=== PATIENT | male | born 1955 | race Caucasian/White ===

== ENCOUNTER 2019-09-06 10:12 | Inpatient (IN) | payer MEDICARE ==
[2019-09-06] MEDS ORDERED: HYDROcodone/Acetaminophen 10/325 mg Tablet PO SCH (13:00)
[2019-09-06] MEDS ORDERED: HYDROcodone/Acetaminophen 10/325 mg Tablet PO PRN (13:48)
[2019-09-06] MEDS ORDERED: Prevnar 13-Val Conj/PF 0.5 ML SYRINGE IM ONE (14:00)
[2019-09-06] MEDS: HYDROcodone/Acetaminophen 10/325 mg Tablet PO PRN ×2 (17:30→21:26)
--- NOTE | 2019-09-06 19:37 | HP ---
HISTORY OF PRESENT ILLNESS: A 64-year-old male patient, who experienced acute onset of right knee pain 2 weeks ago, was treated and released at [facility] Emergency Room and then was later seen again as an outpatient by Ortho, who admitted him for septic arthritis of the right knee, where he subsequently underwent arthrotomy with irrigation, debridement, and open packing on 08/31/2019. Based on consultation with Infectious Disease, Dr. Escobar, it was recommended that he undergo 4-week IV antibiotics treatment. His joint aspirate, tissue, and blood cultures were negative, and his initial WBCs were 7.3. His urine culture was positive for multi-drug resistant e coli, and his GC is pending. He has a PICC line inserted and is currently receiving 2 g Rocephin daily. He tested positive for both Hepatitis C and B. He reports last used Heroin by 'skin popping' 2 days prior to admission. PAST MEDICAL HISTORY: DMT2, CAD, Hypertension, Substance abuse of Heroin and methamphetamine. SURGICAL HISTORY: 08/31/19 Right Knee Arthrotomy, Irrigation, and Debridement, PTCA/Stent FAMILY HISTORY: Noncontributory. SOCIAL HISTORY: He is a former smoker, quit in 1988. He currently drinks alcohol, but was unable to quantify. Does not drink daily. As stated above, he is an active heroin and meth abuser. He last used just prior to admission. He was living with friends in [place], he has a brother who lives in [place], but he is currently homeless. CURRENT MEDICATIONS: 1. Lisinopril 5 mg daily. 2. Metoprolol 25 mg p.o. b.i.d. 3. Tizanidine HCL 2 mg q.4 hours p.r.n. muscle spasm. 4. Hydrocodone 10/325 one to two tabs q.4-6. 5. Glipizide XL 2.5 mg q.a.m. ALLERGIES: NO KNOWN ALLERGIES. REVIEW OF SYSTEMS: A 14-point review of systems negative. PHYSICAL EXAMINATION: VITAL SIGNS: Temperature 98.6, heart rate 62, respirations 18, O2 saturation 98 % on room air, blood pressure 122/64. GENERAL APPEARANCE: He is alert and oriented x3, in no acute distress, talkative HEENT: Conjunctivae normal, no discharge. Pupils equal, round, reactive to light and accommodation. SKIN: Scattered excoriated lesions on his forearms. Right knee is wrapped in an Jeff wrap. NECK: Supple. No jugular vein distension. LUNGS: Clear to auscultation bilaterally. CARDIOVASCULAR: Normal rate and rhythm. Normal S1 and S2. No murmurs. ABDOMEN: Soft, nontender, nondistended, no mass/megaly Active bowel sounds. EXTREMITIES: Well-proportioned and symmetrical. No edema. 2+ pulses in all 4 extremities. LABORATORY DATA: White cell count 5.1, H/H 01/26, platelets 347. Sodium 133, potassium 4.7, chloride 109, CO2 24, BUN 21, creatinine 0.86, glucose 149. Uric Acid 3.8, Multidrug resistant Urine Culture treated with Cipro, Negative joint fluid, tissue, and blood cultures ASSESSMENT: Septic v Inflammatory arthritis, right knee, status post arthrotomy and debridement with open packing, DMT2 poor control PLAN: 1.We will require daily dressing changes, wet to dry over the next 4 weeks of daily IV antibiotic via PICC line. 2. DMT2 obtain A1C and add Metformin bid 3. Dietary Consult DMT2 4. Case Management Consult Substance Abuse and unstable living situation 5. Hypertension poorly controlled, increase Lisinopril to 20 mg daily Job ID: [id number] [id number]
[2019-09-06] MEDS: Metoprolol Tartrate 25 MG TAB PO SCH (21:28)
[2019-09-06] MEDS ORDERED: cefTRIAXone\\ROCEPHIN 2 GM VIAL IVPB SCH (23:00)
[2019-09-07] MEDS: HYDROcodone/Acetaminophen 10/325 mg Tablet PO PRN ×4 (01:36→20:00)
[2019-09-07] MEDS: Metoprolol Tartrate 25 MG TAB PO SCH ×2 (07:50→21:29)
[2019-09-07] MEDS ORDERED: Lisinopril 5 MG TAB PO SCH (09:00)
[2019-09-07] MEDS: Lisinopril 20 MG TAB PO SCH (10:04)
[2019-09-07 12:40] LABS: Hemoglobin A1c 6.3 % (4.0-6.0)
[2019-09-07] MEDS: cefTRIAXone\\ROCEPHIN 2 GM VIAL IVPB SCH (21:30)
[2019-09-08] MEDS: HYDROcodone/Acetaminophen 10/325 mg Tablet PO PRN ×6 (00:25→23:12)
[2019-09-08] MEDS ORDERED: Insulin Regular 300 UNITS/3 ML VIAL SC PRN (06:43)
[2019-09-08] MEDS ORDERED: Dextrose 5% in Water 1,000 ML IV PRN (06:43)
[2019-09-08] MEDS ORDERED: Dextrose 50% Abboject 50 ML SYRINGE SLOW IVP PRN (06:43)
[2019-09-08] MEDS: Lisinopril 20 MG TAB PO SCH (09:21)
[2019-09-08] MEDS: Metoprolol Tartrate 25 MG TAB PO SCH ×2 (09:21→21:16)
[2019-09-08] MEDS: metFORMIN XR 500 MG TAB PO SCH (09:21)
[2019-09-08] MEDS: cefTRIAXone\\ROCEPHIN 2 GM VIAL IVPB SCH (21:15)
[2019-09-09] MEDS: HYDROcodone/Acetaminophen 10/325 mg Tablet PO PRN ×4 (04:26→20:12)
[2019-09-09] MEDS: Metoprolol Tartrate 25 MG TAB PO SCH ×2 (09:18→20:13)
[2019-09-09] MEDS: metFORMIN XR 500 MG TAB PO SCH (09:21)
[2019-09-09] MEDS: Lisinopril 20 MG TAB PO SCH (09:21)
[2019-09-09] MEDS: cefTRIAXone\\ROCEPHIN 2 GM VIAL IVPB SCH (20:13)
[2019-09-10] MEDS: HYDROcodone/Acetaminophen 10/325 mg Tablet PO PRN ×4 (00:20→20:12)
[2019-09-10] MEDS: Lisinopril 20 MG TAB PO SCH (08:36)
[2019-09-10] MEDS: Metoprolol Tartrate 25 MG TAB PO SCH ×2 (08:36→20:13)
[2019-09-10] MEDS: metFORMIN XR 500 MG TAB PO SCH (08:37)
[2019-09-10] MEDS: cefTRIAXone\\ROCEPHIN 2 GM VIAL IVPB SCH (20:15)
[2019-09-11] MEDS: HYDROcodone/Acetaminophen 10/325 mg Tablet PO PRN ×5 (00:50→20:25)
[2019-09-11] MEDS: metFORMIN XR 500 MG TAB PO SCH (07:59)
[2019-09-11] MEDS: Lisinopril 20 MG TAB PO SCH (08:00)
[2019-09-11] MEDS: Metoprolol Tartrate 25 MG TAB PO SCH ×2 (08:00→20:25)
[2019-09-11] MEDS: cefTRIAXone\\ROCEPHIN 2 GM VIAL IVPB SCH (20:25)
[2019-09-12] MEDS: HYDROcodone/Acetaminophen 10/325 mg Tablet PO PRN ×4 (02:59→21:54)
[2019-09-12] MEDS: metFORMIN XR 500 MG TAB PO SCH (09:31)
[2019-09-12] MEDS: Lisinopril 20 MG TAB PO SCH (09:32)
[2019-09-12] MEDS: Metoprolol Tartrate 25 MG TAB PO SCH ×2 (09:32→21:54)
[2019-09-12] MEDS: cefTRIAXone\\ROCEPHIN 2 GM VIAL IVPB SCH (21:55)
[2019-09-13] MEDS: HYDROcodone/Acetaminophen 10/325 mg Tablet PO PRN ×4 (03:03→20:34)
[2019-09-13 05:33] LABS: #Basophils 0.1 thou/uL (0.0-0.2); #Eosinphils 0.2 thou/uL (0.0-0.7); #Lymphocytes 2.6 thou/uL (1.20-3.40); #Monocytes 0.7 thou/uL (0.11-0.59); #Neutrophils 4.3 thou/uL (1.40-6.50); %Basophils 1.1 % (0.0-1.0); %Eosinophils 2.8 % (0.0-10.0); %Lymphocytes 32.7 % (21.0-51.0); %Monocytes 9.3 % (0.0-10.0); %Neutrophils 54.1 % (42.0-75.0); Hemoglobin 9.9 g/dL (14.0-18.0); Mean Corpuscular HGB CONC 31.4 g/dL (32.0-36.0); Mean Corpuscular Hemoglobin 30.5 pg (27.0-31.0); Mean Corpuscular Volume 96.9 fL (78.0-98.0); Mean Platelet Volume 5.9 fL (7.4-10.4); Platelet Count 304 thou/uL (130-400); RBC Distribution Width 13.3 % (11.5-14.5); Red Blood Cell (RBC) Count 3.25 mill/uL (4.70-6.10); White Blood Cell (WBC) Count 7.9 thou/uL (4.8-10.8)
[2019-09-13 06:08] LABS: ALT (SGPT) 39 U/L (8-55); AST (SGOT) 61 U/L (5-34); Albumin 2.6 g/dL (3.4-4.8); Alkaline Phosphatase 143 U/L (40-110); Anion Gap 12 mmol/L (10-20); BUN (Urea Nitrogen) 37 mg/dL (8.4-25.7); Bilirubin, Total 0.2 mg/dL (0.2-1.2); CRP (Inflammatory) 2.83 mg/dL (= or < 0.5); Calc. Creatinine Clearance 98 mL/min (70-130); Calcium 8.7 mg/dL (7.8-10.44); Carbon Dioxide 22 mmol/L (23-31); Chloride 105 mmol/L (98-107); Estimated GFR-MDRD Greater than 90; Globulin 5.4 g/dL (2.4-3.5); Glucose 143 mg/dL (80-115); Potassium 5.1 mmol/L (3.5-5.1); Sodium 134 mmol/L (136-145)
[2019-09-13] MEDS: Metoprolol Tartrate 25 MG TAB PO SCH ×2 (08:05→20:33)
[2019-09-13] MEDS: metFORMIN XR 500 MG TAB PO SCH (08:05)
[2019-09-13] MEDS: Lisinopril 20 MG TAB PO SCH (08:10)
[2019-09-13] MEDS: cefTRIAXone\\ROCEPHIN 2 GM in Sodium Chloride 0.9% 100 ML IVPB SCH (20:32)
[2019-09-13] MEDS ORDERED: cefTRIAXone\\ROCEPHIN 2 GM in Sodium Chloride 0.9% 100 ML IVPB SCH (21:00)
[2019-09-14] MEDS: HYDROcodone/Acetaminophen 10/325 mg Tablet PO PRN ×4 (01:03→20:30)
[2019-09-14] MEDS: metFORMIN XR 500 MG TAB PO SCH (08:21)
[2019-09-14] MEDS: Metoprolol Tartrate 25 MG TAB PO SCH ×2 (08:22→20:31)
[2019-09-14] MEDS: Lisinopril 20 MG TAB PO SCH (08:24)
[2019-09-14] MEDS: cefTRIAXone\\ROCEPHIN 2 GM in Sodium Chloride 0.9% 100 ML IVPB SCH (20:32)
[2019-09-15] MEDS: HYDROcodone/Acetaminophen 10/325 mg Tablet PO PRN ×5 (02:15→20:44)
[2019-09-15] MEDS: metFORMIN XR 500 MG TAB PO SCH ×2 (08:23→17:36)
[2019-09-15] MEDS: Lisinopril 20 MG TAB PO SCH (08:24)
[2019-09-15] MEDS: Metoprolol Tartrate 25 MG TAB PO SCH ×2 (08:27→20:40)
[2019-09-15] MEDS: cefTRIAXone\\ROCEPHIN 2 GM in Sodium Chloride 0.9% 100 ML IVPB SCH (20:36)
[2019-09-16] MEDS: HYDROcodone/Acetaminophen 10/325 mg Tablet PO PRN ×4 (01:51→20:20)
[2019-09-16] MEDS: tiZANidine HCl 4 MG TAB PO PRN (01:51)
[2019-09-16] MEDS: Lisinopril 20 MG TAB PO SCH (08:08)
[2019-09-16] MEDS: FLUoxetine HCl 10 MG CAP PO SCH (08:09)
[2019-09-16] MEDS: metFORMIN XR 500 MG TAB PO SCH ×2 (08:09→17:51)
[2019-09-16] MEDS: Metoprolol Tartrate 25 MG TAB PO SCH ×2 (08:09→20:21)
[2019-09-16] MEDS: cefTRIAXone\\ROCEPHIN 2 GM in Sodium Chloride 0.9% 100 ML IVPB SCH (20:32)
[2019-09-17] MEDS: HYDROcodone/Acetaminophen 10/325 mg Tablet PO PRN ×4 (02:51→21:42)
[2019-09-17] MEDS: tiZANidine HCl 4 MG TAB PO PRN (02:52)
[2019-09-17] MEDS: FLUoxetine HCl 10 MG CAP PO SCH (08:29)
[2019-09-17] MEDS: Lisinopril 20 MG TAB PO SCH (08:30)
[2019-09-17] MEDS: metFORMIN XR 500 MG TAB PO SCH ×2 (08:30→17:16)
[2019-09-17] MEDS: Metoprolol Tartrate 25 MG TAB PO SCH ×2 (08:31→21:42)
[2019-09-17] MEDS: cefTRIAXone\\ROCEPHIN 2 GM in Sodium Chloride 0.9% 100 ML IVPB SCH (21:43)
[2019-09-18] MEDS: HYDROcodone/Acetaminophen 10/325 mg Tablet PO PRN ×4 (03:18→20:58)
[2019-09-18] MEDS: metFORMIN XR 500 MG TAB PO SCH ×2 (09:22→17:17)
[2019-09-18] MEDS: Metoprolol Tartrate 25 MG TAB PO SCH ×2 (09:22→20:58)
[2019-09-18] MEDS: FLUoxetine HCl 10 MG CAP PO SCH (09:22)
[2019-09-18] MEDS: Lisinopril 20 MG TAB PO SCH (09:22)
[2019-09-18] MEDS: cefTRIAXone\\ROCEPHIN 2 GM in Sodium Chloride 0.9% 100 ML IVPB SCH (21:00)
[2019-09-19] MEDS: HYDROcodone/Acetaminophen 10/325 mg Tablet PO PRN ×3 (01:25→15:13)
[2019-09-19] MEDS: FLUoxetine HCl 10 MG CAP PO SCH (10:02)
[2019-09-19] MEDS: Lisinopril 20 MG TAB PO SCH (10:03)
[2019-09-19] MEDS: Metoprolol Tartrate 25 MG TAB PO SCH ×2 (10:03→20:15)
[2019-09-19] MEDS: metFORMIN XR 500 MG TAB PO SCH ×2 (10:03→17:23)
[2019-09-19] MEDS: cefTRIAXone\\ROCEPHIN 2 GM in Sodium Chloride 0.9% 100 ML IVPB SCH (20:21)
[2019-09-20 05:23] LABS: #Basophils 0.1 thou/uL (0.0-0.2); #Eosinphils 0.4 thou/uL (0.0-0.7); #Lymphocytes 2.8 thou/uL (1.20-3.40); #Monocytes 0.7 thou/uL (0.11-0.59); #Neutrophils 4.5 thou/uL (1.40-6.50); %Basophils 0.9 % (0.0-1.0); %Eosinophils 4.9 % (0.0-10.0); %Lymphocytes 32.6 % (21.0-51.0); %Monocytes 8.3 % (0.0-10.0); %Neutrophils 53.3 % (42.0-75.0); Hemoglobin 10.2 g/dL (14.0-18.0); Mean Corpuscular HGB CONC 31.2 g/dL (32.0-36.0); Mean Corpuscular Hemoglobin 29.8 pg (27.0-31.0); Mean Corpuscular Volume 95.5 fL (78.0-98.0); Mean Platelet Volume 6.6 fL (7.4-10.4); Platelet Count 258 thou/uL (130-400); RBC Distribution Width 13.8 % (11.5-14.5); Red Blood Cell (RBC) Count 3.44 mill/uL (4.70-6.10); White Blood Cell (WBC) Count 8.4 thou/uL (4.8-10.8)
[2019-09-20 05:36] LABS: ALT (SGPT) 41 U/L (8-55); AST (SGOT) 46 U/L (5-34); Albumin 2.7 g/dL (3.4-4.8); Alkaline Phosphatase 111 U/L (40-110); Anion Gap 12 mmol/L (10-20); BUN (Urea Nitrogen) 29 mg/dL (8.4-25.7); Bilirubin, Total 0.3 mg/dL (0.2-1.2); CRP (Inflammatory) 3.82 mg/dL (= or < 0.5); Calc. Creatinine Clearance 106 mL/min (70-130); Calcium 8.8 mg/dL (7.8-10.44); Carbon Dioxide 24 mmol/L (23-31); Chloride 104 mmol/L (98-107); Estimated GFR-MDRD Greater than 90; Globulin 5.4 g/dL (2.4-3.5); Glucose 117 mg/dL (80-115); Potassium 5.2 mmol/L (3.5-5.1); Protein, Total 8.1 g/dL (5.8-8.1); Sodium 135 mmol/L (136-145)
[2019-09-20] MEDS: Metoprolol Tartrate 25 MG TAB PO SCH ×2 (08:20→21:06)
[2019-09-20] MEDS: FLUoxetine HCl 10 MG CAP PO SCH (08:20)
[2019-09-20] MEDS: metFORMIN XR 500 MG TAB PO SCH ×2 (08:20→18:00)
[2019-09-20] MEDS: Lisinopril 20 MG TAB PO SCH (08:21)
[2019-09-20] MEDS: HYDROcodone/Acetaminophen 10/325 mg Tablet PO PRN ×3 (08:25→19:37)
[2019-09-20] MEDS: tiZANidine HCl 4 MG TAB PO PRN (18:01)
[2019-09-20] MEDS ORDERED: cefTRIAXone\\ROCEPHIN 2 GM in Sodium Chloride 0.9% 100 ML IVPB SCH (21:00)
[2019-09-20] MEDS: cefTRIAXone\\ROCEPHIN 2 GM in Sodium Chloride 0.9% 100 ML IVPB SCH (21:05)
[2019-09-21] MEDS: HYDROcodone/Acetaminophen 10/325 mg Tablet PO PRN ×4 (01:23→20:55)
[2019-09-21] MEDS: Lisinopril 20 MG TAB PO SCH (08:53)
[2019-09-21] MEDS: metFORMIN XR 500 MG TAB PO SCH ×2 (08:53→17:51)
[2019-09-21] MEDS: FLUoxetine HCl 10 MG CAP PO SCH (08:53)
[2019-09-21] MEDS: Metoprolol Tartrate 25 MG TAB PO SCH ×2 (08:54→20:17)
[2019-09-21] MEDS: cefTRIAXone\\ROCEPHIN 2 GM in Sodium Chloride 0.9% 100 ML IVPB SCH (20:16)
[2019-09-22] MEDS: HYDROcodone/Acetaminophen 10/325 mg Tablet PO PRN ×4 (03:10→19:47)
[2019-09-22] MEDS: Metoprolol Tartrate 25 MG TAB PO SCH ×2 (08:13→20:21)
[2019-09-22] MEDS: metFORMIN XR 500 MG TAB PO SCH ×2 (08:13→17:15)
[2019-09-22] MEDS: FLUoxetine HCl 10 MG CAP PO SCH (08:13)
[2019-09-22] MEDS: Lisinopril 20 MG TAB PO SCH (08:14)
[2019-09-22] MEDS: cefTRIAXone\\ROCEPHIN 2 GM in Sodium Chloride 0.9% 100 ML IVPB SCH (20:21)
[2019-09-23] MEDS: HYDROcodone/Acetaminophen 10/325 mg Tablet PO PRN ×4 (01:51→20:03)
[2019-09-23] MEDS: metFORMIN XR 500 MG TAB PO SCH ×2 (07:19→17:05)
[2019-09-23] MEDS: Metoprolol Tartrate 25 MG TAB PO SCH ×2 (07:20→20:03)
[2019-09-23] MEDS: FLUoxetine HCl 10 MG CAP PO SCH (07:20)
[2019-09-23] MEDS: Lisinopril 20 MG TAB PO SCH (07:20)
[2019-09-23] MEDS: cefTRIAXone\\ROCEPHIN 2 GM in Sodium Chloride 0.9% 100 ML IVPB SCH (20:02)
[2019-09-24] MEDS: HYDROcodone/Acetaminophen 10/325 mg Tablet PO PRN ×4 (02:43→20:15)
[2019-09-24] MEDS: FLUoxetine HCl 10 MG CAP PO SCH (08:47)
[2019-09-24] MEDS: metFORMIN XR 500 MG TAB PO SCH ×2 (08:48→17:29)
[2019-09-24] MEDS: Metoprolol Tartrate 25 MG TAB PO SCH ×2 (08:48→20:16)
[2019-09-24] MEDS: Lisinopril 20 MG TAB PO SCH (08:48)
[2019-09-24] MEDS: cefTRIAXone\\ROCEPHIN 2 GM in Sodium Chloride 0.9% 100 ML IVPB SCH (20:16)
[2019-09-25] MEDS: HYDROcodone/Acetaminophen 10/325 mg Tablet PO PRN ×5 (01:27→21:04)
[2019-09-25] MEDS: metFORMIN XR 500 MG TAB PO SCH ×2 (08:22→17:22)
[2019-09-25] MEDS: FLUoxetine HCl 10 MG CAP PO SCH (08:22)
[2019-09-25] MEDS: Metoprolol Tartrate 25 MG TAB PO SCH ×2 (08:23→21:05)
[2019-09-25] MEDS: Lisinopril 20 MG TAB PO SCH (08:23)
[2019-09-25] MEDS: cefTRIAXone\\ROCEPHIN 2 GM in Sodium Chloride 0.9% 100 ML IVPB SCH (21:05)
[2019-09-26] MEDS: HYDROcodone/Acetaminophen 10/325 mg Tablet PO PRN ×4 (01:40→22:57)
[2019-09-26] MEDS: FLUoxetine HCl 10 MG CAP PO SCH (08:15)
[2019-09-26] MEDS: Metoprolol Tartrate 25 MG TAB PO SCH ×2 (08:16→20:39)
[2019-09-26] MEDS: Lisinopril 20 MG TAB PO SCH (08:16)
[2019-09-26] MEDS: metFORMIN XR 500 MG TAB PO SCH ×2 (08:16→17:22)
[2019-09-26] MEDS: cefTRIAXone\\ROCEPHIN 2 GM in Sodium Chloride 0.9% 100 ML IVPB SCH (20:39)
[2019-09-27] MEDS: HYDROcodone/Acetaminophen 10/325 mg Tablet PO PRN ×4 (04:13→20:01)
[2019-09-27 05:08] LABS: #Basophils 0.1 thou/uL (0.0-0.2); #Eosinphils 0.4 thou/uL (0.0-0.7); #Lymphocytes 2.8 thou/uL (1.20-3.40); #Monocytes 0.9 thou/uL (0.11-0.59); #Neutrophils 4.2 thou/uL (1.40-6.50); %Basophils 0.9 % (0.0-1.0); %Eosinophils 4.7 % (0.0-10.0); %Lymphocytes 33.2 % (21.0-51.0); %Monocytes 10.7 % (0.0-10.0); %Neutrophils 50.6 % (42.0-75.0); Hemoglobin 9.1 g/dL (14.0-18.0); Mean Corpuscular HGB CONC 30.6 g/dL (32.0-36.0); Mean Corpuscular Volume 98.2 fL (78.0-98.0); Mean Platelet Volume 6.8 fL (7.4-10.4); Platelet Count 196 thou/uL (130-400); RBC Distribution Width 14.5 % (11.5-14.5); Red Blood Cell (RBC) Count 3.03 mill/uL (4.70-6.10); White Blood Cell (WBC) Count 8.3 thou/uL (4.8-10.8)
[2019-09-27 05:23] LABS: Anion Gap 11 mmol/L (10-20); BUN (Urea Nitrogen) 48 mg/dL (8.4-25.7); CRP (Inflammatory) 3.38 mg/dL (= or < 0.5); Carbon Dioxide 23 mmol/L (23-31); Chloride 105 mmol/L (98-107); Potassium 5.4 mmol/L (3.5-5.1); Sodium 134 mmol/L (136-145)
[2019-09-27 05:28] LABS: Calc. Creatinine Clearance 91 mL/min (70-130); Estimated GFR-MDRD 81
[2019-09-27 05:29] LABS: ALT (SGPT) 34 U/L (8-55); AST (SGOT) 40 U/L (5-34); Albumin 2.6 g/dL (3.4-4.8); Alkaline Phosphatase 103 U/L (40-110); Bilirubin, Total 0.3 mg/dL (0.2-1.2); Calcium 8.5 mg/dL (7.8-10.44); Globulin 4.9 g/dL (2.4-3.5); Glucose 137 mg/dL (80-115); Protein, Total 7.5 g/dL (5.8-8.1)
[2019-09-27] MEDS: Metoprolol Tartrate 25 MG TAB PO SCH ×2 (08:36→20:36)
[2019-09-27] MEDS: FLUoxetine HCl 10 MG CAP PO SCH (08:36)
[2019-09-27] MEDS: Lisinopril 20 MG TAB PO SCH (08:36)
[2019-09-27] MEDS: metFORMIN XR 500 MG TAB PO SCH ×2 (08:36→17:54)
[2019-09-27] MEDS ORDERED: Furosemide 20 MG/2 ML VIAL SLOW IVP SCH (17:15)
[2019-09-27] MEDS: cefTRIAXone\\ROCEPHIN 2 GM in Sodium Chloride 0.9% 100 ML IVPB SCH (20:37)
[2019-09-28] MEDS: HYDROcodone/Acetaminophen 10/325 mg Tablet PO PRN ×4 (01:51→20:04)
[2019-09-28] MEDS: Metoprolol Tartrate 25 MG TAB PO SCH ×2 (08:07→20:05)
[2019-09-28] MEDS: metFORMIN XR 500 MG TAB PO SCH ×2 (08:07→17:20)
[2019-09-28] MEDS: FLUoxetine HCl 10 MG CAP PO SCH (08:07)
[2019-09-28] MEDS: Lisinopril 20 MG TAB PO SCH (08:08)
[2019-09-28] MEDS: cefTRIAXone\\ROCEPHIN 2 GM in Sodium Chloride 0.9% 100 ML IVPB SCH (20:06)
[2019-09-29] MEDS ORDERED: HYDROcodone/Acetaminophen 10/325 mg Tablet PO PRN (01:07)
[2019-09-29] MEDS ORDERED: tiZANidine HCl 4 MG TAB PO PRN (01:08)
[2019-09-29] MEDS: tiZANidine HCl 4 MG TAB PO PRN (01:11)
[2019-09-29] MEDS ORDERED: Dextrose 5% in Water 1,000 ML IV PRN (01:12)
[2019-09-29] MEDS ORDERED: Dextrose 50% Abboject 50 ML SYRINGE SLOW IVP PRN (01:12)
[2019-09-29] MEDS: HYDROcodone/Acetaminophen 10/325 mg Tablet PO PRN ×5 (01:12→17:59)
[2019-09-29] MEDS: Lisinopril 20 MG TAB PO SCH (08:39)
[2019-09-29] MEDS: Metoprolol Tartrate 25 MG TAB PO SCH ×2 (08:39→20:49)
[2019-09-29] MEDS: metFORMIN XR 500 MG TAB PO SCH ×2 (08:39→17:54)
[2019-09-29] MEDS: FLUoxetine HCl 10 MG CAP PO SCH (08:40)
[2019-09-29] MEDS: cefTRIAXone\\ROCEPHIN 2 GM in Sodium Chloride 0.9% 100 ML IVPB SCH (20:49)
[2019-09-30] MEDS: HYDROcodone/Acetaminophen 10/325 mg Tablet PO PRN ×3 (01:42→17:04)
[2019-09-30] MEDS: FLUoxetine HCl 10 MG CAP PO SCH (08:55)
[2019-09-30] MEDS: Lisinopril 20 MG TAB PO SCH (08:55)
[2019-09-30] MEDS: Metoprolol Tartrate 25 MG TAB PO SCH ×2 (08:55→20:28)
[2019-09-30] MEDS: metFORMIN XR 500 MG TAB PO SCH ×2 (08:56→17:05)
[2019-09-30] MEDS: cefTRIAXone\\ROCEPHIN 2 GM in Sodium Chloride 0.9% 100 ML IVPB SCH (20:29)
[2019-10-01] MEDS: HYDROcodone/Acetaminophen 10/325 mg Tablet PO PRN ×4 (01:13→20:02)
[2019-10-01] MEDS: Metoprolol Tartrate 25 MG TAB PO SCH ×2 (09:17→20:04)
[2019-10-01] MEDS: metFORMIN XR 500 MG TAB PO SCH ×2 (09:17→17:31)
[2019-10-01] MEDS: FLUoxetine HCl 10 MG CAP PO SCH (09:17)
[2019-10-01] MEDS: Lisinopril 20 MG TAB PO SCH (09:17)
[2019-10-01] MEDS: cefTRIAXone\\ROCEPHIN 2 GM in Sodium Chloride 0.9% 100 ML IVPB SCH (20:03)
[2019-10-02] MEDS: HYDROcodone/Acetaminophen 10/325 mg Tablet PO PRN ×6 (00:22→23:52)
[2019-10-02] MEDS: FLUoxetine HCl 10 MG CAP PO SCH (08:20)
[2019-10-02] MEDS: Metoprolol Tartrate 25 MG TAB PO SCH ×2 (08:21→21:14)
[2019-10-02] MEDS: metFORMIN XR 500 MG TAB PO SCH ×2 (08:21→17:43)
[2019-10-02] MEDS: Lisinopril 20 MG TAB PO SCH (08:24)
[2019-10-02] MEDS: cefTRIAXone\\ROCEPHIN 2 GM in Sodium Chloride 0.9% 100 ML IVPB SCH (21:14)
[2019-10-03] MEDS: HYDROcodone/Acetaminophen 10/325 mg Tablet PO PRN ×3 (06:00→17:05)
[2019-10-03] MEDS: metFORMIN XR 500 MG TAB PO SCH ×2 (10:15→17:05)
[2019-10-03] MEDS: Metoprolol Tartrate 25 MG TAB PO SCH ×2 (10:16→20:06)
[2019-10-03] MEDS: Lisinopril 20 MG TAB PO SCH (10:16)
[2019-10-03] MEDS: FLUoxetine HCl 10 MG CAP PO SCH (10:16)
[2019-10-03] MEDS: cefTRIAXone\\ROCEPHIN 2 GM in Sodium Chloride 0.9% 100 ML IVPB SCH (20:05)
[2019-10-04] MEDS: HYDROcodone/Acetaminophen 10/325 mg Tablet PO PRN ×4 (01:06→16:51)
[2019-10-04 06:01] LABS: #Basophils 0.1 thou/uL (0.0-0.2); #Eosinphils 0.4 thou/uL (0.0-0.7); #Lymphocytes 2.6 thou/uL (1.20-3.40); #Monocytes 0.9 thou/uL (0.11-0.59); #Neutrophils 3.8 thou/uL (1.40-6.50); %Basophils 0.9 % (0.0-1.0); %Eosinophils 5.6 % (0.0-10.0); %Lymphocytes 33.6 % (21.0-51.0); %Monocytes 11.3 % (0.0-10.0); %Neutrophils 48.6 % (42.0-75.0); Hemoglobin 8.9 g/dL (14.0-18.0); Mean Corpuscular HGB CONC 31.2 g/dL (32.0-36.0); Mean Corpuscular Hemoglobin 30.2 pg (27.0-31.0); Mean Platelet Volume 7.1 fL (7.4-10.4); Platelet Count 181 thou/uL (130-400); RBC Distribution Width 14.3 % (11.5-14.5); Red Blood Cell (RBC) Count 2.93 mill/uL (4.70-6.10); White Blood Cell (WBC) Count 7.8 thou/uL (4.8-10.8)
[2019-10-04 06:12] LABS: ALT (SGPT) 34 U/L (8-55); AST (SGOT) 39 U/L (5-34); Albumin 2.6 g/dL (3.4-4.8); Alkaline Phosphatase 98 U/L (40-110); Anion Gap 10 mmol/L (10-20); BUN (Urea Nitrogen) 42 mg/dL (8.4-25.7); Bilirubin, Total Less than 0.2 mg/dL (0.2-1.2); Calc. Creatinine Clearance 96 mL/min (70-130); Calcium 8.5 mg/dL (7.8-10.44); Carbon Dioxide 24 mmol/L (23-31); Chloride 106 mmol/L (98-107); Estimated GFR-MDRD Greater than 90; Globulin 4.8 g/dL (2.4-3.5); Glucose 92 mg/dL (80-115); Protein, Total 7.4 g/dL (5.8-8.1); Sodium 135 mmol/L (136-145)
[2019-10-04] MEDS: FLUoxetine HCl 10 MG CAP PO SCH (08:47)
[2019-10-04] MEDS: Lisinopril 20 MG TAB PO SCH (08:48)
[2019-10-04] MEDS: metFORMIN XR 500 MG TAB PO SCH ×2 (08:49→16:50)
[2019-10-04] MEDS: Metoprolol Tartrate 25 MG TAB PO SCH ×2 (08:49→20:27)
[2019-10-04] MEDS: cefTRIAXone\\ROCEPHIN 2 GM in Sodium Chloride 0.9% 100 ML IVPB SCH (20:33)
[2019-10-05] MEDS: HYDROcodone/Acetaminophen 10/325 mg Tablet PO PRN (01:26)
[2019-10-05] MEDS: FLUoxetine HCl 10 MG CAP PO SCH (06:40)
[2019-10-05] MEDS: metFORMIN XR 500 MG TAB PO SCH ×2 (06:40→16:01)
[2019-10-05] MEDS: Metoprolol Tartrate 25 MG TAB PO SCH ×2 (06:40→20:51)
[2019-10-05] MEDS: Lisinopril 20 MG TAB PO SCH (06:41)
[2019-10-05] MEDS ORDERED: traMADol HCl 50 MG TAB PO PRN (12:10)
[2019-10-05] MEDS: HYDROcodone/Acetaminophen 10/325 mg Tablet PO SCH ×2 (20:49→20:50)
[2019-10-06] MEDS: FLUoxetine HCl 10 MG CAP PO SCH (08:08)
[2019-10-06] MEDS: Lisinopril 20 MG TAB PO SCH (08:08)
[2019-10-06] MEDS: metFORMIN XR 500 MG TAB PO SCH ×2 (08:08→18:29)
[2019-10-06] MEDS: Metoprolol Tartrate 25 MG TAB PO SCH ×2 (08:08→20:59)
[2019-10-06] MEDS: HYDROcodone/Acetaminophen 10/325 mg Tablet PO SCH ×4 (09:40→20:58)
[2019-10-07] MEDS: FLUoxetine HCl 10 MG CAP PO SCH (08:50)
[2019-10-07] MEDS: Lisinopril 20 MG TAB PO SCH (08:50)
[2019-10-07] MEDS: Metoprolol Tartrate 25 MG TAB PO SCH ×2 (08:50→20:51)
[2019-10-07] MEDS: metFORMIN XR 500 MG TAB PO SCH ×2 (08:50→17:38)
[2019-10-07] MEDS: HYDROcodone/Acetaminophen 10/325 mg Tablet PO SCH ×4 (08:50→20:50)
[2019-10-08] MEDS: HYDROcodone/Acetaminophen 10/325 mg Tablet PO SCH ×4 (08:22→20:53)
[2019-10-08] MEDS: metFORMIN XR 500 MG TAB PO SCH ×2 (08:25→17:51)
[2019-10-08] MEDS: Metoprolol Tartrate 25 MG TAB PO SCH ×2 (08:25→20:54)
[2019-10-08] MEDS: FLUoxetine HCl 10 MG CAP PO SCH (08:26)
[2019-10-08] MEDS: Lisinopril 20 MG TAB PO SCH (08:26)
[2019-10-08 23:45] VITALS: BMI 26.9
[2019-10-09] MEDS: HYDROcodone/Acetaminophen 10/325 mg Tablet PO SCH ×2 (08:51→08:52)
[2019-10-09] MEDS: metFORMIN XR 500 MG TAB PO SCH (08:51)
[2019-10-09] MEDS: FLUoxetine HCl 10 MG CAP PO SCH (08:51)
[2019-10-09] MEDS: Lisinopril 20 MG TAB PO SCH (08:53)
[2019-10-09] MEDS: Metoprolol Tartrate 25 MG TAB PO SCH (08:53)
[2019-10-09 14:45] VITALS: BP 108/62; TEMP 97.8
--- NOTE | 2019-10-10 13:05 | DIS ---
DATE OF ADMISSION: 09/06/2019 DATE OF DISCHARGE: 10/09/2019 DISPOSITION: Home on home health to [place], [place]. He will be residing with his sister during the remainder of his convalescence. DISCHARGE DIAGNOSIS: Right knee septic arthritis status post lateral parapatellar arthrotomy with irrigation debridement and open packing on 08/31/2019. OTHER DIAGNOSES: Diabetes mellitus type 2, hypertension, and coronary artery disease with percutaneous transluminal coronary angioplasty/stent, history of substance abuse, methamphetamine, heroin DISCHARGE MEDICATIONS: 1. Fluoxetine 20 mg once daily. 2. Lisinopril 20 mg once daily. 3. Metformin XR 500 mg b.i.d. with meals. 4. Metoprolol 25 mg b.i.d. 5. Tizanidine 4 mg b.i.d. p.r.n. muscle spasm. 6. Tramadol 50 mg b.i.d. p.r.n. pain. CODE STATUS: Full, resuscitation. ALLERGIES: NO KNOWN ALLERGIES. HOSPITAL COURSE: A 64-year-old male patient was admitted on the day of his surgery to [facility] as above. He has a past medical history of recent methamphetamine and heroin use, and remote heavy alcohol use. He was admitted to the skilled unit at [facility] on 09/06/19 for wound healing and 4 weeks of IV Rocephin via PICC line per recommendation of Infectious Diseases, Dr. Escobar. By the second week of his skilled stay, it was clear that the wound was not improving using wet-to-dry dressings and so he was started on a wound VAC. Day of discharge is week 4 of wound vac, and wound has reduced in size from approximately 9x3x1.5cm to 8x2x0.5 cm. He was seen on 09/05/2019 by PHIL Murphy at [facility]. Recommendation was to continue wound VAC. He complete 4 weeks IV Rocephin via PICC line, which has been removed. His final lab results done on October 03 shows a white count of 7.8. He has chronic anemia most likely related to the burden of wound healing. H and H 8.9 and 28.4, normal platelet count of 181. His last CRP that was done on 10/03 was 3.3 , stable from the prior week 3.38. His kidney function is normal. Creatinine 0.82, sodium 135, and potassium 5. Normal liver enzymes. The last A1C 6.3 done on 09/07/2019. He has a scheduled follow up visit to establish with local PCP on October 09, in [place], and is sent home on home health with the wound VAC in place. Job ID: [id number]
== END 2019-10-09 14:40 | disposition home health service (06) | DRG 550 ==
LOC: BURMED 11:50 → UNDODISIN 09-28 21:15
PROVIDERS: ADMIT Family Medicine; ATTEND Family Medicine
DX: M00.861 Arthritis due to other bacteria, right knee (principal); E11.9 Type 2 diabetes mellitus without complications; I25.10 Atherosclerotic heart disease of native coronary artery without angina pectoris; I10 Essential (primary) hypertension; F32.9 Major depressive disorder, single episode, unspecified; D64.9 Anemia, unspecified; F15.10 Other stimulant abuse, uncomplicated; F14.10 Cocaine abuse, uncomplicated; Z87.891 Personal history of nicotine dependence; Z95.5 Presence of coronary angioplasty implant and graft
CPT/HCPCS: 36415; 36416; 80053; 83036; 85025; 86140; 87070; 87205; 90471; 90670; G0009; J0696; J1815; J3490